=== PATIENT | female | born 1985 | race Caucasian/White ===

== ENCOUNTER 2023-12-11 17:01 | Emergency (ER) | payer BC, SELFPAY ==
[2023-12-11 17:16] VITALS: BP 91/59; PULSE 119; RESP 16; TEMP 38.1; O2SAT 98; BMI 27.4
--- NOTE | 2023-12-11 17:47 | ED_ITS ---
HPI - Nausea/Vomiting/Diarrhea 2 General: Chief complaint: Nausea/Vomiting/Diarrhea Stated complaint: N/V, Low back pain Time Seen by Provider: 12/11/23 17:23 History of Present Illness: Patient presents to the ER with complaints of left-sided abdominal pain possible left flank pain and fever. He has been going on for about 4 days. Patient is not been able to drink anything without coming back up immediately. Patient's last bowel movement was 4 days ago and it was diarrhea. Patient says she had a maximum temperature yesterday of 103.2 orally. Patient says she is getting lightheaded dizzy feels like she got a pass out. Patient is never had a kidney stone in the past. The only abdominal surgery patient has had is C-sections. Review of Systems 2 General: Reports: 10 or more systems reviewed and unremarkable except in HPI and below Physical Exam 2 Const: COMMON NORMALS: no acute distress, average body habitus, patient oriented x3, no limitations, healthy appearing, alert and well nourished HENMT: COMMON NORMALS: normocephalic, atraumatic, hearing grossly normal bilaterally, external ears normal, Normal external nose present, moist oral mucous membranes and oropharynx normal HEAD & SCALP: normocephalic and atraumatic NOSE: Normal external nose present EXTERNAL EAR: Yes external ears normal Neck/C-Spine: COMMON NORMALS: no JVD Chest: COMMONS NORMALS: normal inspection of the chest and normal palpation of entire chest wall Resp: COMMON NORMALS: normal respiratory effort, No retractions, No use of accessory muscles and clear to auscultation bilaterally AUSCULTATION: clear to auscultation bilaterally Cardio: COMMON NORMALS: no JVD, regular rhythm, S1 normal heart sound present, S2 normal heart sound present, No gallops present (Cardio), No clicks present (Cardio), No murmurs present (Cardio) and No rub (Cardio); negative for regular rate (Mildly tachycardic) RATE: abnormal rate (Mildly tachycardic) RHYTHM: regular rhythm HEART SOUNDS: S1 normal heart sound present and S2 normal heart sound present GI: COMMON NORMALS: Normal to inspection, nondistended, normoactive bowel sounds present, Soft to palpation and No hepatosplenomegaly present; negative for non-tender (Mildly tender with palpation over left upper quadrant and left flank) PALPATION: Yes Soft to palpation and Yes No hepatosplenomegaly present Back/Pelvis: OTHER: Tender to palpation over left paraspinal musculature. This reproduces patient's pain. There is no tenderness over spinal processes or right paraspinal musculature. Neuro: COMMON NORMALS: patient oriented x3 SENSORIUM/ORIENTATION: Yes alert Course 2 Vital Signs: Vital signs: Vital Signs Temperature 97.7 F 12/11/23 20:00 Pulse Rate 69 12/11/23 20:36 Respiratory Rate 12 12/11/23 20:36 Blood Pressure 103/57 12/11/23 20:36 Pulse Oximetry 91 12/11/23 20:36 Oxygen Delivery Me thod Room Air 12/11/23 20:36 MDM - Nausea/Vomiting/Diarrhea Medical Decision Making Lab work showed patient has a normal white count at 8.84, low potassium of 2.9, urinalysis showed infection and blood. CT of the abdomen pelvis showed 7 mm distal left ureteral stone. All these findings was discussed with the patient. Patient was given her first dose of antibiotics and pain medicine here in ER. Patient was given pills to go home and get her through the night to her pharmacy opens up in the morning. Patient was referred to case management for an appointment for urology. Patient be discharged from the ER. Differential Diagnosis Likely gastroenteritis and dehydration; Unlikely traveler's diarrhea, food poisoning, clostridium difficile infection or drug-induced nausea and vomiting Medical Records I reviewed the patient's medical records. Lab Data I reviewed the patient's lab results. 12/11/23 17:42 12/11/23 17:42 Radiology Impressions Abdomen/Pelvis CT 12/11/23 18:57 IMPRESSION: 1. Mild left-sided hydroureteronephrosis and perinephric/periureteral stranding, secondary to a 7 mm distal left ureteral calculus. 2. Additional findings, as above. COMMENTS: Consistent with the [employer]'s Incidental Findings Committee white paper (J Am Lina Radiol 2018): Any incidental renal lesion less than 1 cm or classified as too small to characterize, or any incidental cystic renal lesion characterized as simple-appearing, is likely benign. No follow-up imaging is recommended for these lesions per consensus recommendations based on imaging criteria. Laboratory Results WBC 8.84 10^3/uL (3.29-11.43) 12/11/23 17:42 RBC 4.58 10^6/uL (3.85-5.65) 12/11/23 17:42 Hgb 14.20 g/dL (11.27-16.99) 12/11/23 17:42 Hct 41.6 % (36-47) 12/11/23 17:42 MCV 90.8 fl (85-98) 12/11/23 17:42 MCH 31.0 pg (27-33) 12/11/23 17:42 MCHC 34.1 g/dL (30-55) 12/11/23 17:42 RDW 12.0 % (12.1-15.1) L 12/11/23 17:42 Plt Count 169 10^3/cmm (157-399) 12/11/23 17:42 MPV 10.6 fL (7.4-10.4) H 12/11/23 17:42 Neut % (Auto) 88.8 % 12/11/23 17:42 Lymph % (Auto) 7.1 % 12/11/23 17:42 [place] % (Auto) 2.9 % 12/11/23 17:42 Eos % (Auto) 0.2 % 12/11/23 17:42 Baso % (Auto) 0.5 % 12/11/23 17:42 Neut # (Auto) 7.85 10^3/uL (1.8-7.7) H 12/11/23 17:42 Lymph # (Auto) 0.6 10^3/uL (0.8-4.8) L 12/11/23 17:42 [place] # (Auto) 0.3 10^3/uL (0.2-0.9) 12/11/23 17:42 Eos # (Auto) 0.0 10^3/uL (0.0-0.8) 12/11/23 17:42 Baso # (Auto) 0.0 10^3/uL (0.0-0.1) 12/11/23 17:42 Nucleated RBC % (auto) 0 % 12/11/23 17:42 Nucleated RBCs # 0.0 /100WBC 12/11/23 17:42 Sodium 131 mmol/L (136-145) L 12/11/23 17:42 Potassium 2.9 mmol/L (3.5-5.1) L 12/11/23 17:42 Chloride 97 mmol/L (98-107) L 12/11/23 17:42 Carbon Dioxide 23 mmol/L (22-29) 12/11/23 17:42 Anion Gap 13.9 (5-19) 12/11/23 17:42 BUN 13 mg/dL (6-20) 12/11/23 17:42 Creatinine 0.8 mg/dL (0.5-0.9) 12/11/23 17:42 GFR Calculation 80.3 mL/min (90-130) L 12/11/23 17:42 Glucose 114 mg/dL (65-115) 12/11/23 17:42 Calculated Osmolality 273 mOsm/kg (285-295) L 12/11/23 17:42 Calcium 9.3 mg/dL (8.5-10.5) 12/11/23 17:42 Magnesium 1.9 mg/dL (1.7-2.3) 12/11/23 17:42 Total Bilirubin 1.2 mg/dL (0.15-1.2) 12/11/23 17:42 AST 35 U/L (0-32) H 12/11/23 17:42 ALT 46 U/L (0-33) H 12/11/23 17:42 Alkaline Phosphatase 107 U/L (35-105) H 12/11/23 17:42 Total Protein 7.6 g/dL (6.6-8.7) 12/11/23 17:42 Albumin 4.0 g/dL (3.5-5.2) 12/11/23 17:42 Globulin 3.6 g/dL (1.3-4.6) 12/11/23 17:42 Lipase 19 U/L (13-60) 12/11/23 17:42 Urine Color Yellow (Yellow) 12/11/23 17:31 Urine Appearance Cloudy (CLEAR) A 12/11/23 17:31 Urine pH 5 (5-7) 12/11/23 17:31 Ur Specific [place] 1.015 (1.005-1.030) 12/11/23 17:31 Urine Protein 1+ (Negative) H 12/11/23 17:31 Urine Glucose (UA) Norm (Normal) 12/11/23 17:31 Urine Ketones 2+ (Negative) H 12/11/23 17:31 Urine Blood 3+ (Negative) H 12/11/23 17:31 Urine Nitrate Negative (Negative) 12/11/23 17:31 Urine Bilirubin Neg (Negative) 12/11/23 17:31 Urine Urobilinogen Norm mg/dL (Negative) 12/11/23 17:31 Ur Leukocyte Esterase 2+ (Negative) H 12/11/23 17:31 Urine RBC 15-25 /hpf (0-2) H 12/11/23 17:31 Urine WBC 25-40 /hpf (0-5) H 12/11/23 17:31 Ur Squamous Epith Cells 5-10 /hpf (0-5) H 12/11/23 17:31 Amorphous Sediment 1+ /hpf 12/11/23 17:31 Urine Bacteria 2+ /hpf (NONE) H 12/11/23 17:31 Hyaline Casts 0-4 /lpf H 12/11/23 17:31 Coarse Granular Casts 0-4 /lpf H 12/11/23 17:31 Urine Mucus 2+ /hpf 12/11/23 17:31 All radiology interpretation(s) finalized by discharge Discharge Plan Discharge Patient Disposition: Home Clinical Impression: Calculus, ureteral Urinary tract infection Qualifiers: Urinary tract infection type: acute cystitis Hematuria presence: with hematuria Qualified Code(s): N30.01 - Acute cystitis with hematuria Condition: Stable Prescriptions: New ciprofloxacin HCl 500 mg tablet 500 mg PO Q12H Qty: 20 0RF potassium chloride 20 mEq tablet extended release 20 meq PO DAILY Qty: 7 0RF tamsulosin [Flomax] 0.4 mg capsule 0.4 mg PO DAILY Qty: 7 0RF ketorolac 10 mg tablet 10 mg PO Q8H PRN (Reason: pain) 5 Days Qty: 14 0RF ondansetron HCl 4 mg tablet 4 mg PO Q8H PRN (Reason: nausea and vomiting) Qty: 14 0RF Discharge Orders: Discharge ED (Routine); Ordered 12/11/23 Ordered By: Lawson Paredes Patient Instructions: Kidney Stones (ED), Urinary Tract Infection in Women (ED), How to Strain Your Urine (ED), Pain Management Activity Restrictions/Additional Instructions: Please take all your medicine as directed. Please push plenty of fluids. You have been referred to case management for appointment with urologist. They will probably call you tomorrow to arrange a visit. This is for your 7 mm left ureteral stone. If you have worsening or uncontrolled fever, chills, nausea vomiting, pain please return to the ER. Coding Level of Care Code ED Sewing Machine Attachment Tester for Leonardo Neal
[2023-12-11 17:50] LABS: Basophils % 0.5 %; Eosinophils % 0.2 %; Hematocrit 41.6 % (36-47); Lymphocytes # 0.6 10^3/uL (0.8-4.8); Lymphocytes % 7.1 %; Mean Corpuscular HGB Conc 34.1 g/dL (30-55); Mean Corpuscular Volume 90.8 fl (85-98); Mean Platelet Volume 10.6 fL (7.4-10.4); Monocytes # 0.3 10^3/uL (0.2-0.9); Monocytes % 2.9 %; Neutrophils # 7.85 10^3/uL (1.8-7.7); Neutrophils % 88.8 %; Nucleated Red Blood Cells % 0 %; Platelet Count 169 10^3/cmm (157-399); Red Blood Count 4.58 10^6/uL (3.85-5.65); White Blood Count 8.84 10^3/uL (3.29-11.43)
[2023-12-11] MEDS: ondansetron 2 mg/ML SDV 2 mL 4 MG IVP (17:57)
[2023-12-11] MEDS: sodium chloride 0.9% 1,000 ML 999 ML IV (17:57)
[2023-12-11 18:07] LABS: Alanine Aminotransferase 46 U/L (0-33); Alkaline Phosphatase 107 U/L (35-105); Anion Gap 13.9 (5-19); Aspartate Amino Transferase 35 U/L (0-32); Blood Urea Nitrogen 13 mg/dL (6-20); Calcium 9.3 mg/dL (8.5-10.5); Carbon Dioxide 23 mmol/L (22-29); Chloride 97 mmol/L (98-107); Globulin 3.6 g/dL (1.3-4.6); Glomerular Filtration Rate 80.3 mL/min (90-130); Glucose 114 mg/dL (65-115); Lipase 19 U/L (13-60); Magnesium 1.9 mg/dL (1.7-2.3); Osmolality Calculated 273 mOsm/kg (285-295); Sodium 131 mmol/L (136-145); Total Bilirubin 1.2 mg/dL (0.15-1.2); Total Protein 7.6 g/dL (6.6-8.7)
[2023-12-11 18:25] LABS: Potassium 2.9 mmol/L (3.5-5.1)
[2023-12-11 18:48] LABS: Add Urine Microscopic? YES; Bilirubin Urine Neg (Negative); Blood Urine 3+ (Negative); Glucose Urine UA Norm (Normal); Ketones Urine 2+ (Negative); Leukocyte Esterase Urine 2+ (Negative); Nitrate Urine Negative (Negative); Protein Urine 1+ (Negative); Specific Gravity, Urine 1.015 (1.005-1.030); Urine Appearance Cloudy (CLEAR); Urine Color Yellow (Yellow); Urobilinogen Urine Norm (Negative); pH Urine 5 (5-7)
[2023-12-11 18:49] LABS: Add Urine Culture? Yes; Amorphous Sediment Urine 1+ /hpf; Bacteria Urine 2+ /hpf; Coarse Granular Casts Urine 0-4 /lpf; Hyaline Casts Urine 0-4 /lpf; Mucus Urine 2+ /hpf; RBC Urine 15-25 /hpf (0-2); WBC Urine 25-40 /hpf (0-5)
[2023-12-11] MEDS: potassium chloride ER 20 mEq Tablet 40 MEQ PO (18:50)
[2023-12-11] MEDS: ketorolac 30 mg/mL INJ IVP (18:50)
--- NOTE | 2023-12-11 18:57 | CTR_ITS ---
PROCEDURE INFORMATION: Exam: CT Abdomen And Pelvis Without Contrast Exam date and time: 12/11/2023 7:07 PM Age: 38 years old Clinical indication: Abdominal pain; Prior surgery; Surgery date: 6+ months; Surgery type: Csectionx2. Abdomenoplastyx2; Patient HX: Left flank pain with hematuria; Additional info: Left flank pain, hematuria, n/v TECHNIQUE: Imaging protocol: Computed tomography of the abdomen and pelvis without contrast. Axial, coronal and sagittal reformatted images were created and reviewed. Radiation optimization: All CT scans at this facility use at least one of these dose optimization techniques: automated exposure control; mA and/or kV adjustment per patient size (includes targeted exams where dose is matched to clinical indication); or iterative reconstruction. COMPARISON: No relevant prior studies available. RADIATION DOSE METRICS: Total DLP (mGy-cm): 485.82 FINDINGS: Lungs: Linear stranding at the lung bases, consistent with atelectasis and/or scarring. Liver: Mild hepatomegaly. Gallbladder and bile ducts: Cholelithiasis. Pancreas: Unremarkable. Spleen: Unremarkable. Adrenal glands: Normal. No mass. Kidneys and ureters: Bilateral renal cysts, measuring up to 2.8 cm on the right. Bilateral medullary nephrocalcinosis. Mild left-sided hydroureteronephrosis and perinephric/periureteral stranding, secondary to a 7 mm distal left ureteral calculus (axial image 178 and coronal image 77). Nonobstructing bilateral renal calculi. Stomach and bowel: No bowel wall thickening. No obstruction. No pneumatosis. Appendix: Normal. Intraperitoneal space: Trace nonspecific free pelvic fluid, likely physiologic. No organized fluid collection. No free air. Vasculature: Unremarkable. No aneurysm. Lymph nodes: No pathologically enlarged lymph nodes. Urinary bladder: Unremarkable as visualized. Reproductive: 3.1 x 2.6 cm right adnexal cystic lesion. Bones/joints: No acute osseous abnormality. Mild degenerative changes. Soft tissues: Unremarkable. CT/CT kidney stone [id number] IMPRESSION: 1. Mild left-sided hydroureteronephrosis and perinephric/periureteral stranding, secondary to a 7 mm distal left ureteral calculus. 2. Additional findings, as above. COMMENTS: Consistent with the [employer]'s Incidental Findings Committee white paper (J Am Lina Radiol 2018): Any incidental renal lesion less than 1 cm or classified as too small to characterize, or any incidental cystic renal lesion characterized as simple-appearing, is likely benign. No follow-up imaging is recommended for these lesions per consensus recommendations based on imaging criteria.
[2023-12-11 20:00] VITALS: BP 104/61; PULSE 75; RESP 16; TEMP 36.5; O2SAT 90
[2023-12-11 20:18] VITALS: RESP 16
[2023-12-11] MEDS: morphine 4 mg/mL SDV 1 mL IVP (20:18)
[2023-12-11] MEDS: ciprofloxacin 400 MG/200 ML PREMIX 200 MG IV (20:19)
[2023-12-11 20:36] VITALS: BP 103/57; PULSE 69; RESP 12; O2SAT 91
[2023-12-11 21:18] VITALS: BP 103/57; PULSE 69; RESP 12; TEMP 36.5; O2SAT 91
--- NOTE | 2023-12-13 13:34 | DCPLANNER ---
[facility] [phone]
--- NOTE | 2023-12-20 13:05 | DCPLANNER ---
referral resent to [facility] - confirmed that urology has received referral- called and spoke to also-
== END 2023-12-11 21:19 | disposition home or self-care (01) ==
PROVIDERS: Emergency Provider Emergency Medicine
DX: N13.2 Hydronephrosis with renal and ureteral calculous obstruction (principal); N30.01 Acute cystitis with hematuria
CPT/HCPCS: 36415; 74176; 80053; 81001; 83690; 83735; 85025; 87077; 87086; 87186; 96361; 96374; 96375; 99285; J0744; J1885; J2270; J2405; J7030

== ENCOUNTER 2024-10-22 11:40 | Emergency (ER) | payer BC, SELFPAY ==
[2024-10-22 11:48] VITALS: BP 138/92; PULSE 103; RESP 18; TEMP 36.7; O2SAT 98; BMI 24.3
--- NOTE | 2024-10-22 12:39 | ED_ITS ---
HPI - Abdominal Pain 2 General: Chief Complaint: Abdominal Pain Stated Complaint: abd pain Time Seen by Provider: 10/22/24 12:12 Source: patient Mode of arrival: ambulatory Limitations: no limitations History of Present Illness: Patient is a 39-year-old female presents to ED today with multiple complaints. Patient is having right upper quadrant and right flank pain. She reports history of constipation over the past 2 weeks-took half bottle of mag citrate without results. Still passing flatulence. Prior to constipation, she was having chronic diarrhea. She states she has a longstanding history of GI issues . She is concerned with mucousy and ribbon thin stools. She reports a 30 to 40 pound weight gain over the past 11 months unintentionally. She feels like this is secondary to the diarrhea, lack of appetite, and not being able to eat anything because of nausea. She states she has a strong family history of multiple cancers including pancreatic, ovarian, uterine, and colon cancer. Patient has never seen a ticket dispatcher. She has a history of a kidney/ureter that she was seen here for back in November. She has a history of interstitial cystitis. She follows up with urology for this. States she was diagnosed with a UTI a few weeks ago and did complete antibiotic therapy for this and symptoms have subsided. Patient states she feels fatigued and brain fogged. She arrives in no acute distress with normal vitals. She is intermittently tearful during history taking. MD elicited complaint: abdominal pain Onset (ago): week(s) Location: RUQ Severity: moderate Quality: cramping Radiation: none Migration to: no migration Exacerbating factors: nothing Relieving factors: nothing Associated Symptoms: Reports change in stool character, constipation, diarrhea and nausea; Denies chills, dysuria, fever(s), heartburn, hematochezia, melena, syncope and vomiting Related Data Date of Last Menstrual Period: 09/24/24 Home Medications Medication Instructions Recorded Confirmed No Known Home Medications 10/22/24 10/22/24 Allergies Allergy/AdvReac Type Severity Reaction Status Date / Time No Known Allergies Allergy Verified 10/22/24 11:58 Review of Systems 2 Const: Reports: change in appetite, change in weight and fatigue; Denies: fever(s), chills, body aches or night sweats Eyes: Denies: change in vision or blurry vision Card: Denies: chest pain, palpitations, irregular heart rhythm, lightheadedness, syncope or dyspnea on exertion Resp: Denies: dyspnea, productive cough or pain on inspiration GI: Reports: abdominal pain, nausea, diarrhea, constipation, change in stool character and mucus in stool; Denies: vomiting, heartburn, hematochezia, melena or white/light colored stool : Reports: flank pain; Denies: difficulty voiding, dysuria, urinary frequency, urinary urgency or urinary hesitancy Musc: Denies: neck pain, back pain, extremity pain, extremity swelling or joint pain Skin/Breast: Denies: rash Neuro: Denies: headache(s), numbness in extremities, weakness in extremities or sensory changes [facility] 2 Female Reproductive History: Date of last menstrual period: 09/24/24 Physical Exam 2 Const: COMMON NORMALS: no acute distress, average body habitus, patient oriented x3, no limitations, healthy appearing, alert and well nourished G ENERAL APPEARANCE: cooperative ORIENTATION/CONSCIOUSNESS: Yes awake, Yes oriented to person, Yes oriented to place and Yes oriented to time HENMT: COMMON NORMALS: normocephalic and atraumatic HEAD & SCALP: n ormocephalic and atraumatic Eye: COMMON NORMALS: no scleral icterus Neck/C-Spine: COMMON NORMALS: full ROM, no lymphadenopathy, supple and no meningeal signs Chest: COMMONS NORMALS: normal inspection of the chest Resp: COMMON NORMALS: normal respiratory effort and clear to auscultation bilaterally AUSCULTATION: clear to auscultation bilaterally Cardio: COMMON NORMALS: regular rate and regular rhythm RATE: regular rate RHYTHM: regular rhythm GI: COMMON NORMALS: Normal to inspection, nondistended, normoactive bowel sounds present, Soft to palpation, No hepatosplenomegaly present and no masses INSPECTION: Yes normal to inspection AUSCULTATION: Yes normoactive bowel sounds PALPATION: Yes Soft to palpation, Yes Tenderness to palpation present (GI) (RUQ/R flank; mild), No Guarding due to palpation present (GI), No Rigid due to palpation and Yes No hepatosplenomegaly present : BLADDER/KIDNEY EXAM: Yes CVA tenderness on the right Back/Pelvis: COMMON NORMALS: thoracic and lumbar spine normal to inspection GENERAL BACK: Yes CVA tenderness Extremity: COMMON NORMALS: normal to inspection GENERAL: Yes normal exam except as noted Neuro: COMMON NORMALS: patient oriented x3, moves all extremities, no focal motor deficits and no sensory deficits noted SENSORIUM/ORIENTATION: Yes alert, Yes oriented to person, Yes oriented to place and Yes oriented to time MENINGEAL SIGNS: Yes no meningeal signs Skin: COMMON NORMALS: no rashes or lesions noted GENERAL SKIN EXAM: no rashes or lesions noted Course 2 Vital Signs: Vital signs: Vital Signs Temperature 98.1 F 10/22/24 11:48 Pulse Rate 70 10/22/24 15:19 Respiratory Rate 16 10/22/24 13:05 Blood Pressure 115/72 10/22/24 15:19 Pulse Oximetry 95 10/22/24 15:19 Oxygen Delivery Me thod Room Air 10/22/24 13:05 MDM - Abdominal Pain Medical Decision Making Patient clinically appears in no acute distress. Her vital signs are stable. Her blood work overall is nonactionable. CT scan showing medullary nephrocalcinosis. She seems to be aware of this and states she follows up with her urologist. She does have cholelithiasis without acute cholecystitis. Her liver enzymes here overall are unremarkable. Her tbili is scantly elevated at 1.3. Patient states she plans to follow-up with her primary care provider for GI referral. I think this is appropriate. Return to ED precautions discussed. Medical Records I reviewed the patient's medical records. Lab Data I reviewed the patient's lab results. 10/22/24 12:58 10/22/24 12:58 Labs/Radiology: Radiology Impressions Abdomen/Pelvis CT 10/22/24 13:12 IMPRESSION: 1. No hydronephrosis, renal or ureteral obstruction. 2. Bilateral medullary nephrocalcinosis. 3. No free fluid or adenopathy in the abdomen or pelvis. 4. Small RIGHT ovarian cyst, 3.1 cm. 5. Cholelithiasis without acute cholecystitis. Laboratory Results WBC 9.30 10^3/uL (3.29-11.43) 10/22/24 12:58 RBC 4.89 10^6/uL (3.85-5.65) 10/22/24 12:58 Hgb 14.90 g/dL (11.27-16.99) 10/22/24 12:58 Hct 44.1 % (36-47) 10/22/24 12:58 MCV 90.2 fl (85-98) 10/22/24 12:58 MCH 30.5 pg (27-33) 10/22/24 12:58 MCHC 33.8 g/dL (30-55) 10/22/24 12:58 RDW 11.9 % (12.1-15.1) L 10/22/24 12:58 Plt Count 229 10^3/cmm (157-399) 10/22/24 12:58 MPV 11.3 fL (7.4-10.4) H 10/22/24 12:58 Neut % (Auto) 66.3 % 10/22/24 12:58 Lymph % (Auto) 27.2 % 10/22/24 12:58 [place] % (Auto) 5.2 % 10/22/24 12:58 Eos % (Auto) 0.5 % 10/22/24 12:58 Baso % (Auto) 0.6 % 10/22/24 12:58 Neut # (Auto) 6.16 10^3/uL (1.8-7.7) 10/22/24 12:58 Lymph # (Auto) 2.5 10^3/uL (0.8-4.8) 10/22/24 12:58 [place] # (Auto) 0.5 10^3/uL (0.2-0.9) 10/22/24 12:58 Eos # (Auto) 0.1 10^3/uL (0.0-0.8) 10/22/24 12:58 Baso # (Auto) 0.1 10^3/uL (0.0-0.1) 10/22/24 12:58 Nucleated RBC % (auto) 0 % 10/22/24 12:58 Nucleated RBCs # 0.0 /100WBC 10/22/24 12:58 Sodium 138 mmol/L (136-145) 10/22/24 12:58 Potassium 3.7 mmol/L (3.5-5.1) 10/22/24 12:58 Chloride 102 mmol/L (98-107) 10/22/24 12:58 Carbon Dioxide 23 mmol/L (22-29) 10/22/24 12:58 Anion Gap 16.7 (5-19) 10/22/24 12:58 BUN 12 mg/dL (6-20) 10/22/24 12:58 Creatinine 0.5 mg/dL (0.5-0.9) 10/22/24 12:58 GFR Calculation 137.4 mL/min (90-130) H 10/22/24 12:58 Glucose 114 mg/dL (65-115) 10/22/24 12:58 Calculated Osmolality 287 mOsm/kg (285-295) 10/22/24 12:58 Calcium 9.9 mg/dL (8.5-10.5) 10/22/24 12:58 Total Bilirubin 1.3 mg/dL (0.15-1.2) H 10/22/24 12:58 AST 14 U/L (0-32) 10/22/24 12:58 ALT 12 U/L (0-33) 10/22/24 12:58 Alkaline Phosphatase 60 U/L (35-105) 10/22/24 12:58 Total Protein 8.1 g/dL (6.6-8.7) 10/22/24 12:58 Albumin 4.9 g/dL (3.5-5.2) 10/22/24 12:58 Globulin 3.2 g/dL (1.3-4.6) 10/22/24 12:58 Lipase 25 U/L (13-60) 10/22/24 12:58 HCG, Qual Negative (Negative) 10/22/24 12:58 Urine Color Yellow (Yellow) 10/22/24 12:40 Urine Appearance Clear (CLEAR) 10/22/24 12:40 Urine pH 6.0 (5-7) 10/22/24 12:40 Ur Specific [place] 1.017 (1.005-1.030) 10/22/24 12:40 Urine Protein Negative (Negative) 10/22/24 12:40 Urine Glucose (UA) Negative (Normal) 10/22/24 12:40 Urine Ketones 1+ (Negative) H 10/22/24 12:40 Urine Blood 1+ (Negative) A 10/22/24 12:40 Urine Nitrate Negative (Negative) 10/22/24 12:40 Urine Bilirubin Negative (Negative) 10/22/24 12:40 Urine Urobilinogen 1.0 mg/dL (Negative) 10/22/24 12:40 Ur Leukocyte Esterase 1+ (Negative) A 10/22/24 12:40 Urine RBC 6-10 /hpf (0-2) 10/22/24 12:40 Urine WBC 0-5 /hpf (0-5) 10/22/24 12:40 Ur Squamous Epith Cells 0-5 /hpf (0-5) 10/22/24 12:40 Amorphous Sediment Not Reportable 10/22/24 12:40 Urine Bacteria Trace /hpf (NONE) 10/22/24 12:40 Hyaline Casts 1.65 /lpf 10/22/24 12:40 All radiology interpretation(s) finalized by discharge Discharge Plan Discharge Patient Disposition: Home Clinical Impression: Nephrocalcinosis Constipation Qualifiers: Constipation type: unspecified constipation type Qualified Code(s): K59.00 - Constipation, unspecified Cholelithiasis Qualifiers: Cholelithiasis location: gallbladder Cholecystitis presence: without cholecystitis Biliary obstruction: without biliary obstruction Qualified Code(s): K80.20 - Calculus of gallbladder without cholecystitis without obstruction Condition: Stable Prescriptions: No Action No Known Home Medications Discharge Orders: Discharge ED (Routine); Ordered 10/22/24 Ordered By: Judy Eason Activity Restrictions/Additional Instructions: As we discussed, I recommend you continue to follow-up with primary care to see if they would like to refer you to GI at this time. Continue to follow-up with your urologist regarding the medullary nephrocalcinosis and interstitial cystitis. You may return the emergency department for worsening abdominal pain, generally feeling worse or unwell, or any other concerns you may have. Coding Level of Care Code ED Splicing Machine Operator Automatic for Leonardo Neal
[2024-10-22 12:54] LABS: Bilirubin Urine Negative (Negative); Blood Urine 1+ (Negative); Glucose Urine UA Negative (Normal); Ketones Urine 1+ (Negative); Leukocyte Esterase Urine 1+ (Negative); Nitrate Urine Negative (Negative); Protein Urine Negative (Negative); Specific Gravity, Urine 1.017 (1.005-1.030); Urine Appearance Clear (CLEAR); Urine Color Yellow (Yellow)
[2024-10-22 12:56] LABS: Add Urine Microscopic? YES; Bacteria Urine Trace /hpf; Hyaline Casts Urine 1.65 /lpf; Squamous Epithelial Cell Urine 0-5 /hpf (0-5); WBC Urine 0-5 /hpf (0-5)
[2024-10-22 13:05] VITALS: BP 135/80; PULSE 71; RESP 16; O2SAT 97
--- NOTE | 2024-10-22 13:12 | CT_ITS ---
WS: [id number] CT ABDOMEN AND PELVIS NONCONTRAST HISTORY: R flank/RUQ pain TECHNIQUE: Imaging performed through the abdomen and pelvis. Coronal and sagittal reformats are submi tted. All CT scans at [facility] use at least one of these dose optimization techniques: auto mated exposure control; mA and/or kV adjustment per patient size (includes targeted exams where dose is matched to clinical indication); or iterative reconstruction. DLP: 314.82 mGy.cm COMPARISON: 12/11/2023 Lower thorax: Lung bases are clear. Visualized heart is normal. No hiatal hernia. Liver: Normal size liver. No mass or bile duct dilatation. Gallbladder: Cholelithiasis without acute cholecystitis. Pancreas: Normal size and attenuation. Normal pancreatic duct. No pancreatitis or mass. Spleen: Normal. Adrenal glands: Normal. No mass. Right kidney: Advanced medullary calcifications. 1.9 cm mid RIGHT renal cyst. There may be an additio nal cyst in the upper pole. There is no hydronephrosis or hydroureter. Left kidney: Advanced medullary nephrocalcinosis. Probable cyst in the lower pole. No obstruction. Aorta: Normal abdominal aorta, no aneurysm or atherosclerosis. No free fluid, intraperitoneal air or significant lymphadenopathy. GI tract: Normal noncontrast imaging of the stomach, small bowel and colon. No obstruction or wall th ickening. Normal appendix. Abdominal wall: Negative. No hernia. Pelvis: No free fluid. No adenopathy. Mild uterine enlargement. Bulbous appearance of the uterus is s imilar to prior studies. RIGHT ovarian cyst 3.1 cm. Osseous structures: Unremarkable. CT/CT kidney stone [id number] IMPRESSION: 1. No hydronephrosis, renal or ureteral obstruction. 2. Bilateral medullary nephrocalcinosis. 3. No free fluid or adenopathy in the abdomen or pelvis. 4. Small RIGHT ovarian cyst, 3.1 cm. 5. Cholelithiasis without acute cholecystitis.
[2024-10-22 13:30] VITALS: BP 117/72; PULSE 58; O2SAT 96
[2024-10-22 13:38] LABS: Basophils # 0.1 10^3/uL (0.0-0.1); Basophils % 0.6 %; Eosinophils # 0.1 10^3/uL (0.0-0.8); Eosinophils % 0.5 %; Hematocrit 44.1 % (36-47); Lymphocytes # 2.5 10^3/uL (0.8-4.8); Lymphocytes % 27.2 %; Mean Corpuscular HGB Conc 33.8 g/dL (30-55); Mean Corpuscular Hemoglobin 30.5 pg (27-33); Mean Corpuscular Volume 90.2 fl (85-98); Mean Platelet Volume 11.3 fL (7.4-10.4); Monocytes # 0.5 10^3/uL (0.2-0.9); Monocytes % 5.2 %; Neutrophils # 6.16 10^3/uL (1.8-7.7); Neutrophils % 66.3 %; Nucleated Red Blood Cells % 0 %; Platelet Count 229 10^3/cmm (157-399); Red Blood Count 4.89 10^6/uL (3.85-5.65); Red Cell Distribution Width 11.9 % (12.1-15.1)
[2024-10-22 13:50] LABS: HCG, Serum Qual Negative (Negative)
[2024-10-22 13:55] LABS: Alanine Aminotransferase 12 U/L (0-33); Albumin Level 4.9 g/dL (3.5-5.2); Alkaline Phosphatase 60 U/L (35-105); Anion Gap 16.7 (5-19); Aspartate Amino Transferase 14 U/L (0-32); Blood Urea Nitrogen 12 mg/dL (6-20); Calcium 9.9 mg/dL (8.5-10.5); Carbon Dioxide 23 mmol/L (22-29); Chloride 102 mmol/L (98-107); Creatinine Clr Calc Pharmacy 134.2522; Globulin 3.2 g/dL (1.3-4.6); Glomerular Filtration Rate 137.4 mL/min (90-130); Glucose 114 mg/dL (65-115); Lipase 25 U/L (13-60); Osmolality Calculated 287 mOsm/kg (285-295); Potassium 3.7 mmol/L (3.5-5.1); Sodium 138 mmol/L (136-145); Total Bilirubin 1.3 mg/dL (0.15-1.2); Total Protein 8.1 g/dL (6.6-8.7)
[2024-10-22 15:19] VITALS: BP 115/72; PULSE 70; O2SAT 95
== END 2024-10-22 15:20 | disposition home or self-care (01) ==
PROVIDERS: Emergency Provider Physician Assistant
DX: E83.59 Other disorders of calcium metabolism (principal); N29 Other disorders of kidney and ureter in diseases classified elsewhere; K59.00 Constipation, unspecified; K80.20 Calculus of gallbladder without cholecystitis without obstruction
CPT/HCPCS: 36415; 74176; 80053; 81001; 83690; 84703; 85025; 99284

== ENCOUNTER → 2024-12-30 10:49 | Outpatient (BNVA) | payer BC, SELFPAY | PROVIDERS: Visit Provider Registered Nurse Neonatal Intensive Care | DX: R39.9 Unspecified symptoms and signs involving the genitourinary system (principal) | CPT/HCPCS: 81000 ==

== ENCOUNTER 2025-04-22 08:52 | Outpatient (CLI) | payer BC, SELFPAY ==
--- NOTE | 2025-04-22 09:08 | USR_ITS ---
PROCEDURE INFORMATION: Exam: US Abdomen Complete Exam date and time: 04/22/2025 9:36 AM Age: 39 years old Clinical indication: Abdominal pain; Localized; Right upper quadrant (ruq); Additional info: Ruq pain/abnormal weight loss TECHNIQUE: Imaging protocol: Real-time ultrasound of the abdomen with image documentation. Complete exam. COMPARISON: CT kidney stone [id number] 10/22/2024 2:14 PM FINDINGS: Liver: Measures 13.2 cm in length. Normal echogenicity. No discrete mass. Normal flow directionality in the main portal vein. Gallbladder: Large gallstone. Gallbladder wall thickening or pericholecystic fluid. Biliary ducts: Nondilated. The common duct measures 0.2 cm at the mg hepatis. Pancreas: Imaged portions of the pancreas are grossly unremarkable. Right kidney: Measures 9.1 cm length. Mild renal cortical thinning. Echogenic pyramids. Multiple cysts including a 2.0 cm cyst with multiple internal septations. No hydronephrosis. Left kidney: Measures 9.8 cm in length. Mild renal cortical thinning. Echogenic renal pyramids. A 1.5 cm cyst. Spleen: Unremarkable. Measures 9.9 cm in length. No hydronephrosis. Aorta: Unremarkable. Inferior vena cava: Unremarkable. US/US abdomen complete* [id number] IMPRESSION: 1. Cholelithiasis without sonographic evidence of acute cholecystitis. 2. Bilateral renal cysts including a mildly complex right renal cyst measuring 2.0 cm. Consider renal MRI for further characterization if clinically indicated. 3. Echogenic renal pyramids which can be seen in the setting of medullary sponge kidney versus other causes of medullary nephrocalcinosis. Recommend clinical correlation.
== END 2025-04-22 08:53 | disposition home or self-care (01) ==
LOC: RAD 08:55
PROVIDERS: PCP Nurse Practitioner Family; Visit Provider Nurse Practitioner Family
DX: K80.20 Calculus of gallbladder without cholecystitis without obstruction (principal); N28.1 Cyst of kidney, acquired; R63.4 Abnormal weight loss
CPT/HCPCS: 76700

== ENCOUNTER 2025-05-28 08:39 | Outpatient (CLI) | payer BC, SELFPAY ==
--- NOTE | 2025-05-28 08:46 | MR_ITS ---
WS: [id number] MRI ABDOMEN WITH AND WITHOUT CONTRAST. COMPARISON: CT 10/22/2024, ultrasound 04/22/2025 Multiplanar, multisequence imaging is performed with and without contrast. MultiHance 11 mL. History: Follow-up RIGHT renal cyst. Complex cyst. RIGHT kidney: Normal size. No obstruction. There are numerous cysts scattered throughout the RIGHT kidney. The largest cyst in the mid anterior kidney is a complex cyst corresponding to the recent findings by ultrasound. This complex cyst measures 2.3 x 1.8 x 1.9 cm with slightly lobulated borders. There were a few septations noted by ultrasound. There is no enhancement. The septations do not enhance. There is an additional smaller cyst in the posterior mid kidney measuring 1.0 cm which is of increased signal on the T1 sequences but does not enhance. This is probably a hemorrhagic cyst. This cyst is high density on all sequences. Patient has known medullary nephrocalcinosis. LEFT kidney:. Normal size. There are multiple cysts scattered throughout the kidney. Largest cyst in the mid kidney measures 1.4 x 1.6 x 1.1 cm. No enhancement of any of the cyst. Patient has known medullary nephrocalcinosis. Normal size liver. No significant hepatic steatosis. The spleen is normal size. No adrenal mass. Patient has known cholelithiasis. No pericholecystic fluid or gallbladder wall thickening. Normal pancreas. No ascites or adenopathy. MR/MR abdomen wo/w con* [id number] IMPRESSION: 1. Numerous bilateral renal cysts. Patient has known medullary nephrocalcinosi s as seen on prior imaging studies. 2. Complex cyst in the mid RIGHT kidney with septations does not enhance. Comp aashish cyst. No solid mass. There is an additional hemorrhagic cyst in the RIGHT k idney which does not enhance. 3. Cholelithiasis without acute cholecystitis.
[2025-05-28] MEDS: gadobenate dimeglumine 20 mL vial 11 ML IV (09:33)
== END 2025-05-28 08:40 | disposition home or self-care (01) ==
LOC: RAD 08:41
PROVIDERS: PCP Nurse Practitioner Family; Visit Provider Nurse Practitioner Family
DX: N28.1 Cyst of kidney, acquired (principal); K80.20 Calculus of gallbladder without cholecystitis without obstruction
CPT/HCPCS: 74183